=== PATIENT | female | born 1965 ===

== ENCOUNTER 2017-11-21 09:28 | Emergency (ER) | payer BC ==
[2017-11-21 10:02] VITALS: BP 148/102
--- NOTE | 2017-11-21 10:54 | RAD ---
INDICATION: ] Right rib pain COMPARISON: None TECHNIQUE: Multiple views of the ribs were obtained. FINDINGS: Bones: There is no evidence of acute rib fracture. LUNGS: The lungs are clear. There is no pneumothorax. Pleural spaces: There is no evidence of hemothorax. Other: None IMPRESSION: NEGATIVE EXAMINATION.
--- NOTE | 2017-11-21 11:12 | ED ---
Adult Trauma - HPI Summary HPI Summary: 52 yr old female with the complaint of right anterior chest wall pain. Onset yesterday. The patient tripped in her driveway and then fell breaking fall with hands but still landed directly on her right anterior chest wall. Complains of pain to the upper ribs and breast area since fall. No bruise per the patient. No other complaints. - History of Current Complaint Chief Complaint: UCRespiratory Stated Complaint: FALL RIGHT SIDED RIB PAIN Time Seen by Provider: 11/21/17 10:21 Pain Intensity: 6 - Allergy/Home Medications Allergies/Adverse Reactions: Allergies Allergy/AdvReac Type Severity Reaction Status Date / Time lisinopril Allergy Coughing Verified 11/21/17 09:54 Home Medications: Home Medications Atenolol TAB* [Tenormin TAB* 50 MG] 50 mg PO DAILY 11/21/17 [History Confirmed 11/21/17] Cyclobenzaprine TAB* [Flexeril 10 MG TAB*] 10 mg PO BEDTIME PRN 11/21/17 [ History Confirmed 11/21/17] DULoxetine DR CAP* [Cymbalta CAP*] 30 mg PO DAILY 11/21/17 [History Confirmed ] Ibuprofen TAB* [Advil TAB*] 800 mg PO Q6H PRN 11/21/17 [History Confirmed ] PMH/Surg Hx/FS Hx/Imm Hx Cardiovascular History: Reports: Hx Hypertension - Surgical History Surgery Procedure, Year, and Place: tubal ligation Infectious Disease History: No Infectious Disease History: Denies: Traveled Outside the [place] in Last 30 Days - Family History Known Family History: Positive: None - Social History Occupation: Employed Full-time Alcohol Use: Occasionally Substance Use Type: Reports: None Smoking Status (MU): Heavy Every Day Tobacco Smoker Type: Cigarettes Amount Used/How Often: 1 PPD Review of Systems Constitutional: Negative Positive: Other - right anterior chest wall pain All Other Systems Reviewed And Are Negative: Yes Physical Exam Triage Information Reviewed: Yes Vital Signs On Initial Exam: Initial Vitals Temp Pulse Resp BP Pulse Ox 99.2 F 83 18 148/102 96 11/21/17 09:57 11/21/17 09:57 11/21/17 09:57 11/21/17 09:57 11/21/17 09:57 Vital Signs Reviewed: Yes Appearance: Positive: Well-Appearing, No Pain Distress Skin: Positive: Warm, Skin Color Reflects Adequate Perfusion Head/Face: Positive: Normal Head/Face Inspection Eyes: Positive: EOMI ENT: Positive: Normal ENT inspection Neck: Positive: Nontender Respiratory/Lung Sounds: Positive: Clear to Auscultation, Other - tender over the upper right chest wall, no bruise Cardiovascular: Positive: RRR. Negative: Murmur Abdomen Description: Positive: Nontender Musculoskeletal: Positive: Strength/ROM Intact Neurological: Positive: Sensory/Motor Intact, Alert, Oriented to Person Place, Time, CN Intact II-III Psychiatric: Positive: Normal - [place] Coma Scale Best Eye Response: 4 - Spontaneous Best Motor Response: 6 - Obeys Commands Best Verbal Response: 5 - Oriented Coma Scale Total: 15 Diagnostics - Vital Signs Vital Signs Temp Pulse Resp BP Pulse Ox 11/21/17 09:57 99.2 F 83 18 148/102 96 - Laboratory Lab Statement: Any lab studies that have been ordered have been reviewed, and results considered in the medical decision making process. - Radiology chest and rib films Xray Interpretation: No Acute Changes Radiology Interpretation Completed By: Radiologist Adult Trauma Course/Dx - Course Course Of Treatment: 52 yr old with chest wall contusion. DC home. - Diagnoses Provider Diagnoses: Chest wall contusion, Hypertension Discharge - Sign-Out/Discharge Documenting (check all that apply): Discharge - Discharge Plan Condition: Good Disposition: HOME Prescriptions: Ibuprofen TAB* [Motrin TAB* 600 MG] 600 mg PO Q8H PRN #14 tab PRN Reason: Pain Patient Education Materials: Hypertension (ED), Chest Wall Pain (ED) Referrals: Morenita Yuen MD [Primary Care Provider] - 2 Days Additional Instructions: be sure to follow up with your primary doctor for blood pressure re check. - Billing Disposition and Condition Condition: GOOD Disposition: HOME
== END 2017-11-21 11:21 | disposition home or self-care (01) ==
LOC: UCCORT 09:28
DX: S20.219A Contusion of unspecified front wall of thorax, initial encounter (principal); W01.0XXA Fall on same level from slipping, tripping and stumbling without subsequent striking against object, initial encounter; Y92.89 Other specified places as the place of occurrence of the external cause; I10 Essential (primary) hypertension; F17.210 Nicotine dependence, cigarettes, uncomplicated; Z88.8 Allergy status to other drugs, medicaments and biological substances
CPT/HCPCS: 99202; G0463